=== PATIENT | male | born 1985 | race Asian ===

== ENCOUNTER → 2016-08-19 | Outpatient (CLI) | payer BC ==
[2016-08-19 13:11] VITALS: BP 119/79
--- NOTE | 2016-08-19 13:11 | Urgent Care T Sheet Gen (E) ---
Intake General Temperature (Fahrenheit): 97.8 Pulse: 60 Blood Pressure Systolic: 119 Blood Pressure Diastolic: 79 Respirations: 16 SPO2: 99 Description of Symptoms Patient presents for suture removal. Patient had a skin biopsy done on the plantar aspect of the R foot on Aug 07. Patient was instructed to have the sutures removed in 10 days. Biopsy was done in [place]. No issues. States the path report was normal. Respiratory Constitutional Symptoms: No syptoms reported Skin: Other (biopsy R foot) All Other Systems Reviewed Remaining Systems: All other systems reviewed with negative findings Physical Exam Physical Exam General Appearance: WD/WN No apparent distress Skin Exam: Other (healed biopsy spot along the lateral aspect of the R plantar heel. no redness, no warmth.) Procedures/Interventions Suture/Wound Check : Suture/Wound Check: Sutures removed/provider Progress 3 sutures were removed without issue. Patient tolerated procedure. Departure Urgent Care Impression Impression: Primary Impression: Visit for suture removal Departure Disposition: 01 HOME OR SELF-CARE Condition: Stable Referrals: IVIS GONZALES (PCP) Additional Instructions: Sutures were removed without issue. Patient reports a normal path report. Area might still be a little tender but should improve with time. All questions were answered. End of report . JJ GROSS Aug 19, 2016 13:11
== END ==
LOC: MHUC 12:43
PROVIDERS: ATTEND Physician Assistant
DX: Z48.02 Encounter for removal of sutures (principal)
CPT/HCPCS: 99212